=== PATIENT | male | born 1980 | race Caucasian/White ===

== ENCOUNTER 2017-11-02 03:47 | Emergency (ER) | payer OTHER, SELFPAY ==
[2017-11-02 03:47] VITALS: BP 167/93; PULSE 85; RESP 16; TEMP 36.3; O2SAT 97; BMI 22.6
--- NOTE | 2017-11-02 04:00 | ED.DCSUM_ITS ---
- ER Visit Summary Date of Service: 11/02/17 Chief Complaint: [] States he has had nausea with 6 episodes of emesis mainly this evening. He has had a cough for last couple days. No flu shot. He is NyQuil. No home treatment for nausea. He is unsure if he has influenza. Symptoms History of Present Illness: The patient is a 37 M [] see above Physical Examination: [] Vital signs reviewed General: Well-nourished well-developed Head: Normocephalic atraumatic Eyes: Pupils equal round and reactive to light extraocular movements intact ENT: TMs clear no hemotympanum no trauma Neck: Nontender full range of motion Cardiovascular: Regular rate rhythm no murmurs normal S1-S2 Respiratory: No distress clear to auscultation bilaterally chest nontender Abdomen: Soft nontender nondistended normal bowel sounds no masses Back: Nontender no CVA tenderness Extremities: Nontender active range of motion ?4 extremities no trauma Skin: Normal color no trauma Neuro alert oriented cranial nerves II through XII intact normal strength sensation reflexes Test Results: [] Emergency Department Course and Treatment: [] Resting comfortably. Given IV fluids Rosendo will be discharged with the same. I do not feel he needs lab work or imaging. He is nontoxic. He could have a little bit of food poisoning or viral illness. This could be influenza. He will treat this symptomatically. Rosendo for home. Treatment Plan: [] Disposition: [] Impression: [] Nausea and vomiting Cough This note was generated with [employer] dictation software. It may contain incorrect words, spelling, and punctuation that were not noted in review of the chart prior to signing ED Disposition - Plan for ED Patient: Chief Complaint: Nausea/Vomiting Referrals: Oscar Zeng MD [Primary Care Provider] -
--- NOTE | 2017-11-02 04:00 | ED.DEP ---
ED Disposition - Plan for ED Patient: Disposition: Home or Assisted Living Chief Complaint: Nausea/Vomiting Instructions: ED Nausea Vomiting Prescriptions: Ondansetron [Zofran Odt] 4 mg PO Q8H PRN PRN #10 tab PRN Reason: Nausea Referrals: Oscar Zeng MD [Primary Care Provider] -
[2017-11-02] MEDS: 0.9% Normal Saline 1,000 ML 1000 ML IV (04:03)
[2017-11-02] MEDS: Ondansetron 4 MG/2 ML Vial IV (04:03)
[2017-11-02 04:35] VITALS: BP 135/96; PULSE 90; O2SAT 97
== END 2017-11-02 04:40 | disposition home or self-care (01) ==
LOC: ED 04:03
PROVIDERS: Emergency Provider Emergency Medicine; Family Provider Internal Medicine; PCP Internal Medicine
DX: R11.2 Nausea with vomiting, unspecified (principal); R05 Cough
CPT/HCPCS: 96361; 96374; 99283; J7030; J2405

== ENCOUNTER 2017-11-03 20:19 | Emergency (ER) | payer OTHER, SELFPAY ==
[2017-11-02 03:47] VITALS: BMI 22.6
[2017-11-02 04:35] VITALS: BP 135/96
[2017-11-03 20:20] VITALS: BP 122/90; PULSE 82; RESP 16; TEMP 37.4; O2SAT 95; BMI 22.3
--- NOTE | 2017-11-03 21:22 | CT_ITS ---
STUDY: CT ABDOMEN AND PELVIS WITH CONTRAST REASON FOR EXAM: Male, 37 years old. Nausea and vomiting for 4 days. RADIATION DOSAGE (If Supplied By Facility): CTDIvol = ( 9.35 ) mGy, DLP = ( 445.47 ) mGycm TECHNIQUE: Transaxial images were obtained from the dome of the diaphragm to the symphysis pubis with oral contrast. 100ml ml of Isovue 300 contrast was administered. Sagittal and coronal images were reconstructed. Individualized dose optimization techniques were used for this CT. COMPARISON: None. FINDINGS: The visualized lung bases are unremarkable. The visualized portions of the heart are within normal limits. There is a 1.3 cm low-attenuation space-occupying lesion in the left lobe of the liver, probably solid. Normal gallbladder and extrahepatic biliary system. Normal spleen. Normal pancreas. Normal bilateral adrenal glands. Normal right kidney. Normal left kidney. Assessment of the stomach is limited by nondistention. Normal small intestine. There are multiple colonic diverticula consistent with diverticulosis. The appendix is visualized on axial images 80-87 and it appears normal.. Normal abdominal aorta. Normal inferior vena cava. Normal retroperitoneum. Normal urinary bladder. There is small umbilical hernia containing fat, but no bowel. There is degenerative disc disease L5-S1 level. CT/Abdomen/Pelvis WITH Contrast IMPRESSION: Mild colonic diverticulosis, without evidence for acute diverticulitis. 1.3 cm space occupying lesion in the left lobe of the liver. Suggest elective follow-up evaluation with multiphasic contrast enhanced MRI or CT scan. No evidence for acute pathology. No evidence for appendicitis. No evidence for bowel obstruction or ileus. Electronically Signed: Malik Wei MD at 0:12 EST , Service support ,
[2017-11-03] MEDS: 0.9% Normal Saline 1,000 ML 1000 ML IV (21:35)
[2017-11-03 22:07] LABS: Absolute Neutrophil Count 4.1 X10^3/uL (2.0-7.7); Basophil# 0.01 X10^3/uL; Basophil% 0.2 % (0-1); Eosinophil# 0.02 X10^3/uL; Eosinophils% 0.4 % (0-5); Hemoglobin 15.5 g/dl (13.0-16.5); Lymphocyte % 9.2 % (19-41); Mean Corpuscular Hgb 32.1 pg (27.0-32.0); Mean Platelet Vol. 9.6 fl (6.2-12.0); Monocyte# 0.82 X10^3/uL; Monocyte% 15.1 % (0-10); Neutrophil # 4.09 X10^3/uL (2.7-7.7); Neutrophil % 75.1 % (47-70); Platelet Count 199 K/mm3 (150-450); RBC Distribution Width CV 11.5 % (11.6-14.6); RBC Distribution Width SD 37.3 fl (35.1-43.9); Red Blood Count 4.83 M/mm3 (4.6-6.2); White Blood Count 5.4 K/mm3 (4.4-11.0)
[2017-11-03 22:08] LABS: Differential Indicated SCAN CRITERIA MET; POSITIVE COUNT NO; POSITIVE DIFFERENTIAL YES; POSITIVE MORPHOLOGY NO
[2017-11-03 22:13] LABS: AST(SGOT) 35 U/L (15-37); Alanine Aminotransfer ALT/SGPT 33 U/L (16-61); Albumin, Serum 3.8 g/dL (3.2-5.0); Alkaline Phosphatase 64 U/L (45-117); Anion Gap 10 (5-15); BUN 15 mg/dL (7-18); BUN/Creat Ratio 16.5 RATIO (10-20); Calcium,Total 8.8 mg/dL (8.5-10.1); Chloride 100 mmol/L (98-107); Creatinine, Serum 0.91 mg/dL (0.70-1.30); EST Glomerular Filtration Rate 98 mL/min (>60); Est Glom Filt Rate - Afr Amer 119 mL/min (>60); Estimated Creatinine Clearance 111.76 ml/min; Globulin 3.9 g/dL (2.2-4.2); Glucose 97 mg/dL (74-106); Lipase 125 U/L (73-393); Potassium 3.8 mmol/L (3.5-5.1); Protein, Total 7.7 g/dL (6.4-8.2); Sodium Level 138 mmol/L (136-145)
--- NOTE | 2017-11-03 23:50 | ED.DCSUM_ITS ---
- ER Visit Summary Date of Service: 11/03/17 Chief Complaint: Nausea, vomiting History of Present Illness: The patient is a 37 M presenting with nausea, vomiting ?4 days. Patient was seen in the ED and given Zofran. He states he continues to have vomiting and diarrhea. Denies blood in his stool or emesis. He went to urgent care today and was advised to come to the ED for further evaluation. Physical Examination: Vitals are stable. Patient is afebrile. Alert no acute distress. HEENT exam is unremarkable. Neck is supple. Lungs are clear and equal bilaterally. Heart is regular rate and rhythm. Abdomen is soft right and left lower quadrant tenderness with no rebound or guarding. Extremities are unremarkable. Skin is warm and dry. Remainder of exam is unremarkable. Emergency Department Course and Treatment: Patient was given IV fluids, Phenergan. CBC, chemistries unremarkable. Liver lipase are normal. CT abdomen pelvis with p.o. and IV contrast was obtained and shows mild colonic diverticulosis, without evidence for acute diverticulitis. 1.3 cm space occupying lesion in the left lobe of the liver. Suggest elective follow-up evaluation with multiphasic contrast enhanced MRI or CT scan. No evidence for acute pathology. No evidence for appendicitis. No evidence for bowel obstruction or ileus. Advised CT scan results and advised importance of close follow-up. He understands and will follow-up with Dr. Zeng. He has been able to tolerate p.o. in the emergency department. He is given a prescription for Phenergan. He is advised to return to ED if worsening complaints. Disposition: Discharge home Impression: Vomiting and diarrhea This note was generated with [employer] dictation software. It may contain incorrect words, spelling, and punctuation that were not noted in review of the chart prior to signing ED Disposition - Plan for ED Patient: Chief Complaint: Nausea/Vomiting Referrals: Oscar Zeng MD [Primary Care Provider] -
[2017-11-03 23:53] VITALS: BP 137/71; PULSE 69; RESP 18; O2SAT 100
--- NOTE | 2017-11-04 00:29 | ED.DEP ---
ED Disposition - Plan for ED Patient: Chief Complaint: Nausea/Vomiting Instructions: ED Vomiting Diarrhea Nonspecific Ad Prescriptions: ProMETHAzine [Phenergan] 25 mg PO Q6H PRN PRN #10 tablet PRN Reason: Nausea Referrals: Oscar Zeng MD [Primary Care Provider] -
[2017-11-04 00:52] VITALS: BP 131/69; PULSE 70; RESP 18; O2SAT 100
== END 2017-11-04 00:53 | disposition home or self-care (01) ==
PROVIDERS: Emergency Provider Emergency Medicine; Family Provider Internal Medicine; PCP Internal Medicine
DX: R11.2 Nausea with vomiting, unspecified (principal); R19.7 Diarrhea, unspecified; R10.813 Right lower quadrant abdominal tenderness; R10.814 Left lower quadrant abdominal tenderness; K57.30 Diverticulosis of large intestine without perforation or abscess without bleeding; K76.9 Liver disease, unspecified; Z72.89 Other problems related to lifestyle
CPT/HCPCS: 74177; 80053; 83690; 85025; 96361; 96374; 99283; Q9967; A4216

== ENCOUNTER 2019-05-16 18:04 | Emergency (ER) | payer OTHER, SELFPAY ==
[2019-05-16 18:04] VITALS: BP 125/79; PULSE 81; RESP 16; TEMP 36.3; BMI 24.3
--- NOTE | 2019-05-16 18:10 | ED.DCSUM_ITS ---
History of Present Illness Chief Complaint: Laceration Informant: Patient Onset: Today, Hours Mechanism/Context: Incised - On the lid of a can of corn Quality of Pain: - - No discomfort Location: Volar distal right thumb Current Severity: Gone Maximum Severity: Mild Worsened by: Nothing Relieved by: Nothing Associated Symptoms: Negative for: Parasthesias, Weakness, Loss of function, Inability to ambulate, Loss of consciousness Narrative: Patient is a 38-year-old [id number] male who presents with laceration of the volar surface of his right thumb. This occurred at home when opening a can a corn. Immunization up-to-date. He denies paresthesia, anesthesia or motor weakness. Tetanus Immunization: <5 years Prior similar symptoms: No Recent Illness/Hospitalization: No - Past Medical History (1) No significant past medical history Status: Acute Past Medical History - Allergies and Home Meds Allergies/Adverse Reactions: Allergies No Known Allergies Allergy (Verified 11/03/17 20:20) Primary Care Physician: Oscar Zeng MD [Primary Care Provider] - 10 Day for suture removal Prior records reviewed: No Past Medical History: None Surgical History: no surgical history Lives: Spouse/ Significant Other, With Family Smoking Status: Never smoker Drugs: None Review of Systems Musculoskeletal: Denies: Myalgias, Arthralgias, Neck pain, Back pain, Swelling, Extremity Pain Neurological: Denies: Weakness, Parasthesia, Numbness Hematologic: Denies: Easy bruising, Easy bleeding, Lymphadenopathy Physical Exam Vital Signs/Narrative: Vital Signs Temp Pulse Resp BP 05/16/19 18:04 97.3 F L 81 16 125/79 H Inital Vital Signs reviewed: Yes General: Well nourished, Well developed Eyes: Perrl, EOMI. Negative for: Pale conjunctiva, Scleral icterus Cardiovascular: Regular rate, Regular rhythm Respiratory: No distress Extremeties: Vision has a laceration volar surface of the right thumb. Capillary refill normal. Sensation normal. Flexion extension of the IP joint intact. There is no subungual hematoma noted. Skin: Normal color, No rash, Trauma - Flap type laceration volar surface distal right thumb Neurological: Alert, Oriented x3, Normal Sensation, Disoriented Psychological: Normal affect Diagnostic/Tx/Re-eval - Medical Decision Making She has laceration which will require repair. Will anesthetize thumb and suture please read procedure note Laceration No standard instances Length: 0.71 in Depth: Sub Q Shape: Flap Prep: Nehemias-Keo Laceration Repair: Nerve block - Digital nerve block Irrigated (ml): 50 Number of Sutures/[place]: 3 Stitch Description: Ethilon, 5-0 Disposition: Home ED Disposition - Plan for ED Patient: Disposition: Home or Assisted Living Diagnosis: Laceration of right thumb Instructions: LACERATION, Hand Referrals: Oscar Zeng MD [Primary Care Provider] - 10 Day for suture removal Additional Instructions: Clean wound with peroxide and Q-tip 3 times a day then apply bacitracin ointment.
== END 2019-05-16 18:42 | disposition home or self-care (01) ==
LOC: ED 18:39
PROVIDERS: Emergency Provider Emergency Medicine; Family Provider Internal Medicine; PCP Internal Medicine
DX: S61.011A Laceration without foreign body of right thumb without damage to nail, initial encounter (principal); W26.8XXA Contact with other sharp object(s), not elsewhere classified, initial encounter; Y93.9 Activity, unspecified; Y92.9 Unspecified place or not applicable
CPT/HCPCS: 12001; 99284

== ENCOUNTER 2020-03-31 20:52 | Emergency (ER) | payer BC, SELFPAY ==
[2020-03-31 20:53] VITALS: BP 136/85; PULSE 86; RESP 16; TEMP 36.6; O2SAT 97; BMI 22.9
--- NOTE | 2020-03-31 21:03 | ED.VIS.GEN ---
History of Present Illness Chief Complaint: Wound Detail of Chief Complaint: Right hip wound Informant: Patient Onset: Days - 4 days Context: Gradual Onset Current Severity: Mild Maximum Severity: Moderate Narrative: Patient present secondary to right hip wound. He poked himself in the hip with a nail last evening. The following day it was swollen and painful. He was able to get a small amount of drainage out of it. Over the weekend the area has increased in size. He denies fever or chills. Past Medical History - Allergies and Home Meds Allergies/Adverse Reactions: Allergies No Known Allergies Allergy (Verified 11/03/17 20:20) Primary Care Physician: Oscar Zeng MD [Primary Care Provider] - Past Medical History: None Surgical History: no surgical history Lives: Spouse/ Significant Other Smoking Status: Never smoker Review of Systems General: Denies: Chills, Fever Eyes: Denies: Visual changes - bilaterally ENT: Denies: Bilateral ear pain Cardiovascular: Denies: Chest pain Respiratory: Denies: Dyspnea Gastrointestinal: Denies: Abdominal pain, Nausea Musculoskeletal: Reports: Extremity Pain Skin: Reports: Wounds Neurological: Denies: Headache Hematologic: Denies: Easy bruising, Easy bleeding Allergy: Denies: Uticaria Physical Exam Vital Signs/Narrative: Vital Signs Temp Pulse Resp BP Pulse Ox 03/31/20 20:53 98 F 86 16 136/85 H 97 Inital Vital Signs reviewed: Yes General: Well nourished, Well developed Head: Normocephalic ENT: Moist mucous membranes Neck: Supple Cardiovascular: Regular rate, Regular rhythm Respiratory: No distress, CTA bilaterally Abdomen: Soft, Nontender Extremities: - - 3 x 2 cm cutaneous abscess to the right anterior hip. Minimal surrounding cellulitis. Neurological: Alert, Oriented x3 Psychological: Normal affect Diagnostic/Tx/Re-eval - Medical Decision Making Patient is given Bactrim and Keflex. Topical let is placed. After 20 minutes 1 cc of 1% lidocaine is used locally. T incision is made with a #11 blade. Loculations were broken up. There is return of blood with a small amount of pus. Quarter inch packing is placed. Patient was placed on 10 days of antibiotics. He is to pull the packing in 3 days. Wound care is discussed. Patient is given return instructions. ED Disposition - Plan for ED Patient: Disposition: Home or Assisted Living Diagnosis: Cutaneous abscess Instructions: ED Abscess Incision And Drainage Prescriptions: Smz/Tmp Ds [Bactrim Ds] 1 tab PO BID #20 tab Transmission Status: Pending to [id number] Cephalexin [Keflex] 500 mg PO Q6 #40 cap Transmission Status: Pending to [id number] Referrals: Oscar Zeng MD [Primary Care Provider] - 1 Week
[2020-03-31] MEDS: Lidocaine/Epi/Tetracaine 50 ML 1 APPLIC TOPICAL (21:29)
[2020-03-31] MEDS: Cephalexin 250 MG Capsule 500 MG PO (21:29)
[2020-03-31] MEDS: Smz/Tmp Ds Tablet 1 TABLET PO (21:29)
[2020-03-31 21:40] VITALS: RESP 16
== END 2020-03-31 21:52 | disposition home or self-care (01) ==
PROVIDERS: Emergency Provider Emergency Medicine; PCP Internal Medicine
DX: L02.415 Cutaneous abscess of right lower limb (principal); L03.116 Cellulitis of left lower limb
CPT/HCPCS: 10060; 99283

== ENCOUNTER 2024-11-22 16:12 | Emergency (ER) | payer OTHER, BC, SELFPAY ==
[2024-11-22 16:13] VITALS: BP 144/99; PULSE 83; RESP 15; TEMP 36.8; O2SAT 98; BMI 27.5
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
[2024-11-22] MEDS: Diphth,Pertuss(Acell),Tet Vac 0.5 ML Vial IM (17:42)
[2024-11-22] MEDS: Lidocaine 1% /Epi 1:100 (20ml) 20 ML Vial INFILT (17:43)
[2024-11-22] MEDS: Lidocaine/Epi/Tetracaine 50 ML 1 APPLIC TOPICAL (17:43)
[2024-11-22 18:13] VITALS: BP 166/93; PULSE 75; RESP 18; O2SAT 97
[2024-11-22 19:59] VITALS: BP 138/79; PULSE 81; RESP 17; TEMP 36.8; O2SAT 97
== END 2024-11-22 20:04 | disposition home or self-care (01) ==
PROVIDERS: Emergency Provider Surgery; PCP Internal Medicine; Visit Provider Surgery
DX: S52.501A Unspecified fracture of the lower end of right radius, initial encounter for closed fracture (principal); S01.511A Laceration without foreign body of lip, initial encounter; S62.304A Unspecified fracture of fourth metacarpal bone, right hand, initial encounter for closed fracture; S62.302A Unspecified fracture of third metacarpal bone, right hand, initial encounter for closed fracture; S60.222A Contusion of left hand, initial encounter; V49.40XA Driver injured in collision with unspecified motor vehicles in traffic accident, initial encounter; Y92.410 Unspecified street and highway as the place of occurrence of the external cause; Z23 Encounter for immunization
CPT/HCPCS: 12011; 29125; 70450; 70486; 72125; 73110; 73130; 90471; 90715; 99285

== ENCOUNTER → 2024-11-24 | Outpatient (CLI) | payer OTHER, SELFPAY ==
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
== END | disposition home or self-care (01) ==
LOC: RAD 15:00
PROVIDERS: PCP Internal Medicine; Referring Provider Surgery Plastic and Reconstructive Surgery; Visit Provider Surgery Plastic and Reconstructive Surgery
DX: S52.501A Unspecified fracture of the lower end of right radius, initial encounter for closed fracture (principal)
CPT/HCPCS: 73110

== ENCOUNTER 2024-11-26 13:22 | Emergency (ER) | payer OTHER, SELFPAY ==
[2024-11-26 13:22] VITALS: BP 163/101; PULSE 94; RESP 16; TEMP 36.8; O2SAT 100; BMI 25.1
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
[2024-11-26] MEDS: Ketorolac 30 MG/ML Syringe IM (13:59)
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
[2024-11-26 15:24] VITALS: BP 155/79; PULSE 80; RESP 16; O2SAT 99
== END 2024-11-26 15:25 | disposition home or self-care (01) ==
PROVIDERS: Emergency Provider Surgery; PCP Internal Medicine; Visit Provider Surgery
DX: S46.911A Strain of unspecified muscle, fascia and tendon at shoulder and upper arm level, right arm, initial encounter (principal); V89.2XXA Person injured in unspecified motor-vehicle accident, traffic, initial encounter; S20.20XA Contusion of thorax, unspecified, initial encounter
CPT/HCPCS: 71101; 73030; 96372; 99282

== ENCOUNTER → 2024-11-27 | Outpatient (CLI) | payer OTHER, SELFPAY ==
--- NOTE | 2024-11-27 14:21 | CT_ITS ---
PROCEDURE: EXTREMITY UPPER WITHOUT CONTRA REASON FOR EXAM: Preoperative evaluation for metacarpal fracture. TECHNIQUE: CT scan of the right hand. Multiple axial tomographic images were obtained without intravenous contrast administration. Coronal and sagittal reconstruction was obtained as well. 3D reconstruction was also obtained. COMPARISON: None. FINDINGS: Bones: Nondisplaced comminuted oblique fracture of the midportion of the 4th metacarpal. Nondisplaced transverse fracture of the mid lower aspect of the 3rd metacarpal. Joints: Joint space(s) preserved. No subluxation or dislocation. Soft Tissues: Soft tissue swelling. CT/Extremity Upper without Contra IMPRESSION: Nondisplaced fracture in the midline of the One or more dose reduction techniques were used (e.g., Automated exposure contr ol, adjustment of the mA and/or kV according to patient size, use of iterative reconstruction technique). Reading Location: [id number]
== END | disposition home or self-care (01) ==
PROVIDERS: PCP Internal Medicine; Referring Provider Surgery Plastic and Reconstructive Surgery; Visit Provider Surgery Plastic and Reconstructive Surgery
DX: S62.329A Displaced fracture of shaft of unspecified metacarpal bone, initial encounter for closed fracture (principal)
CPT/HCPCS: 73200

== ENCOUNTER 2024-11-29 07:31 | Day surgery (SDC) | payer OTHER, SELFPAY ==
[2024-11-29] VITALS (10 sets, daily range): BP systolic 141–163; BP diastolic 90–112; PULSE 76–109; RESP 16–22; TEMP 36.3–37.7; O2SAT 96–99; BMI 25.0
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
--- NOTE | 2024-11-29 08:10 | RAD_ITS ---
PROCEDURE: C-ARM OF THE RIGHT HAND IN THE OPERATING ROOM REASON FOR EXAM: INTERNAL FIXATION OF FRACTURES OF THE 3RD AND 4TH METACARPALS. TECHNIQUE: 23 image(s) of the right hand COMPARISON: CT dated 11/27/2024. Plain films dated 11/24/2024. FINDINGS: Early images show K-wires extending through fracture fragments of the 3rd and 4th metacarpals. The final images show placement of intramedullary screws extending through the fracture fragments of the 3rd and 4th metacarpals. Fracture fragments are in good alignment A intra-articular fracture through the radial styloid is noted, undisplaced. RAD/Hand 2 Views IMPRESSION: Satisfactory postreduction films of the 3rd and 4th metacarpals. Intra-articular fracture of the radial styloid, undisplaced redemonstrated. Fluoroscopy: 7 minutes 43 seconds. Dose: 3.47 mGy. Reading Location: [place] [id number]
[2024-11-29] MEDS: 0.9% Normal Saline (1000mL) 1,000 ML 15 ML IV (08:32)
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
[2024-11-29] MEDS: Cefazolin 2 GM in Syringe IV (09:02)
[2024-11-29] MEDS: Bupiv/Epi 0.25% 30 ML Vial (10:10)
--- NOTE | 2024-11-29 10:25 | RAD_ITS ---
PROCEDURE: WRIST MIN 3 VIEWS REASON FOR EXAM: Postop. TECHNIQUE: Three-view right wrist COMPARISON: Right wrist study of 11/24/2019 RAD/Wrist min 3 Views IMPRESSION: Fine bony detail limited by overlying plaster appears cast material. Interval placement of screws transfixing the fracture sites in the right 3rd an d 4th metacarpal bones. No complication is seen. Reading Location: [id number]
--- NOTE | 2024-11-29 10:36 | PCM.POST.ANE ---
Anesthesia: Postop Eval I Current Vital Signs Temperature: 97.4 F Pulse Rate: 109 Blood Pressure: 158/101 Respiratory Rate: 22 Pulse Ox: 99 Oxygen Delivery Method: Venturi Mask Oxygen Flow Rate (L/min): 8 Assessment Airway patent: Yes Spontaneous unlabored respirations: Yes Mental status: Awake nausea: No Vomiting: No Anesthesia Complication: No Fluid Hydration Crystalloid volume administer (ml): 900 Total IV fluid infused: 900 Progress Note Anesthesia document: Postop Eval 1 completed: Yes
--- NOTE | 2024-11-29 11:00 | POSTOPAN2_ITS ---
Anesthesia Postop Eval I Sum Postop Eval Completion status Anesthesia document: Postop Eval 1 completed: Yes Anesthesia Postop Eval I Summary Anesthesia Postop Eval I Summary: Anesthesia Postop Eval I: Assessment Summary Airway patent Yes 11/29/24 10:37 DIRECT MAIL [email or web address] Spontaneous unlabored Yes 11/29/24 10:37 DIRECT MAIL [email or web address] respirations Mental status Awake 11/29/24 10:37 DIRECT MAIL [email or web address] nausea No 11/29/24 10:37 DIRECT MAIL [email or web address] Vomiting No 11/29/24 10:37 DIRECT MAIL [email or web address] Anesthesia Postop Eval I: Fluid Summary Crystalloid volume administer 900 11/29/24 10:37 DIRECT MAIL [email or web address] (ml) Colloids volume administered ( ml) Blood Product volume administered (ml) Total IV fluid infused 900 11/29/24 10:37 DIRECT MAIL [email or web address] Anesthesia Postop Eval I: Summary Notes Anesthesia Complication No 11/29/24 10:37 DIRECT [email or web address] [email or web address] Anesthesia Complication Comment: Post-operative progress note Anesthesia: Postop Eval II Evaluation Mental status: Awake Pain Level: 0 nausea: No Vomiting: No
--- NOTE | 2024-11-29 11:00 | PCM.POSTANE2 ---
Anesthesia Postop Eval I Sum Postop Eval Completion status Anesthesia document: Postop Eval 1 completed: Yes Anesthesia Postop Eval I Summary Anesthesia Postop Eval I Summary: Anesthesia Postop Eval I: Assessment Summary Airway patent Yes 11/29/24 10:37 [email or web address] Spontaneous unlabored Yes 11/29/24 10:37 [email or web address] respirations Mental status Awake 11/29/24 10:37 [email or web address] nausea No 11/29/24 10:37 YARDER [email or web address] Vomiting No 11/29/24 10:37 [email or web address] Anesthesia Postop Eval I: Fluid Summary Crystalloid volume administer 900 11/29/24 10:37 [email or web address] (ml) Colloids volume administered ( ml) Blood Product volume administered (ml) Total IV fluid infused 900 11/29/24 10:37 [email or web address] Anesthesia Postop Eval I: Summary Notes Anesthesia Complication No 11/29/24 10:37 [email or web address] Anesthesia Complication Comment: Post-operative progress note Anesthesia: Postop Eval II Evaluation Mental status: Awake Pain Level: 0 nausea: No Vomiting: No
[2024-11-29] MEDS: oxyCODONE 5 MG Tablet PO (11:46)
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
== END 2024-11-29 12:23 | disposition home or self-care (01) ==
LOC: SDC 08:12 → AC 08:26
PROVIDERS: PCP Internal Medicine; Referring Provider Surgery Plastic and Reconstructive Surgery; Visit Provider Surgery Plastic and Reconstructive Surgery
PROC: (CPT 26615; principal; 2024-11-29 08:55)
DX: S62.322A Displaced fracture of shaft of third metacarpal bone, right hand, initial encounter for closed fracture (principal); S62.324A Displaced fracture of shaft of fourth metacarpal bone, right hand, initial encounter for closed fracture; S52.514A Nondisplaced fracture of right radial styloid process, initial encounter for closed fracture; V54.5XXA Driver of pick-up truck or van injured in collision with heavy transport vehicle or bus in traffic accident, initial encounter; Y93.89 Activity, other specified; Y99.0 Civilian activity done for income or pay
CPT/HCPCS: 26615 ×2; 25600; 01830; 73110; 73120; 76000; C1713; A4216; J2405

== ENCOUNTER 2025-03-26 10:30 | Outpatient (RCR) | payer OTHER, SELFPAY ==
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
--- NOTE | 2025-02-06 09:23 | HP.OTREVAL ---
Re-Evaluation Intro: Dr. Jamal Lim MD, It has been my pleasure to treat DARRYL COLON over the last 17 visits for right distal radius fx.. Please see the progress note below for an update on the occupational therapy plan of care! Subjective Subjective: pt arrives to approved OT session- pt states he continues to struggle with return of left UE and head and neck surgeon strength. This limits pt with cooking, meal prep, cleaning and yard work. pt would like to see more functional head and neck surgeon strength. Objective Objective/Function: right wrist 50 /50 right head and neck surgeon strength 30# left is 100# right lateral pinch 12# right tripod pinch 8# pt continues to make gains with wrist ROM. strength is progressing but due to limitations with UE weakness and head and neck surgeon strength pt would benefit from further skilled OT services 2x week for 6 weeks to return pts functional strength to return to daily tasks. Plan Plan Frequency: 2-3x /Week Duration: 6 Weeks Visits in this POC: C9 2-3x week for 6 weeks Plan: cont with AAROM and PRE Goals Goals Patient Goals: Regain Mobility, Improve Fine Motor Skills, Use Hand/Wrist/Arm Normally Again and Be More Independent in ADLS Goal:Daily scar massage when approriate: Yes Goal:ROM equal to unaffected hand: Yes Goal:Sprinkling System Installer/Pinch strength at least 75% of unaffected hand: Yes Goal:No pain with affected hand use: Yes Goal:Full use of affected hand in daily activities including work: Yes Anticipated Interventions Anticipated Interventions Anticipated Interventions: A/AAROM/PROM, Edema Control, Triggerpoint Release, Modalities, Joint Protection/Energy Conservation, Ergonomic Education, Fine Motor Coord/Cheko, Education re assistive Equipment, Education re Diagnosis and Home Program Re-Evaluation Ending Re-evaluation ending: Please do not hesitate to contact me at [phone] by phone or if you have questions or concerns regarding this new plan of care! Sincerely, Lorraine Carney, OTR/L, CHT
--- NOTE | 2025-03-26 11:01 | HP.OTDCSUM_ITS ---
Discharge Summary D/C Summary: It has been my pleasure to treat DARRYL COLON under orders from Dr. Jamal Lim MD, for the diagnosis of right distal radius fx. for a total of 7 visit(s). Please see the following information for a summary of their discharge status. Overall Improvement % Improvement: 98 Objective Objective/Function: right wrist 50 /50 right contact center professional strength 76# left is 100# right lateral pinch 14# right tripod pinch 10# pt continues to make gains with wrist ROM. strength is progressing. pt will cont. Goals Patient Goals: Regain Mobility, Improve Fine Motor Skills, Use Hand/Wrist/Arm Normally Again and Be More Independent in ADLS Goal:Daily scar massage when approriate: Yes Goal Progress: Goal Met Goal:ROM equal to unaffected hand: Yes Goal Progress: Goal Met Goal:Cement Boat And Barge Loader/Pinch strength at least 75% of unaffected hand: Yes Goal:No pain with affected hand use: Yes Goal Progress: Goal Met Goal:Full use of affected hand in daily activities including work: Yes Goal Progress: Goal Met Plan Plan: D/C D/C Information Discharge Comments: pt has met goals at this time-Pt is d/c with HEP to continue to improve his strength. pt agrees with D/C d/c sentence: If there are questions or concerns regarding this patient's occupational therapy, please fell free to call me at [phone]. Thank you for the referral of this patient. Sincerely, Lorraine Carney, OTR/L, CHT
== END 2025-03-26 19:00 | disposition home or self-care (01) ==
LOC: OT 10:30
PROVIDERS: PCP Internal Medicine; Referring Provider Surgery Plastic and Reconstructive Surgery; Visit Provider Surgery Plastic and Reconstructive Surgery
DX: S62.329D Displaced fracture of shaft of unspecified metacarpal bone, subsequent encounter for fracture with routine healing (principal); S52.501D Unspecified fracture of the lower end of right radius, subsequent encounter for closed fracture with routine healing; S62.309D Unspecified fracture of unspecified metacarpal bone, subsequent encounter for fracture with routine healing
CPT/HCPCS: 97110; 97140; 97166; 97530; 97760